=== PATIENT | male | born 1980 ===

== ENCOUNTER → 2017-02-09 | Outpatient (REF) ==
--- NOTE | 2017-02-09 22:31 | REP ---
Clinical: Back pain. Technique: AP, lateral, cone down views of the lumbosacral spine. Findings: Alignment and lordosis maintained. No acute fracture / compression injury or subluxation. Minimal disc space narrowing at the L5-L1 level cannot be excluded. Remainder examination appears normal. Evidence to suggest a 17 mm round calcification in the right mid abdomen possible appendicolith or renal stone. Impression: Cannot exclude mild disc space narrowing at the L5-L1 level. 17 mm calcification in the right mid abdomen possible appendicolith versus renal stone. Signed by Ej Contreras MD 02/09/2017 10:23 P
== END ==
LOC: M SMT 13:01
PROVIDERS: ATTEND Internal Medicine
DX: M54.5 Low back pain (principal)